=== PATIENT | female | born 1985 | race Caucasian/White ===

== ENCOUNTER 2017-01-25 13:19 | Emergency (ER) | payer OTHER ==
[~2017-01-25] VITALS: Ht 170.1 cm; Wt 68.0 kg
[~2017-01-25 13:19] MED LIST: 'XANAX0.25 MG PO; AUGMENTIN 875875 MG PO; BENTYL10 MG PO; BIRTH CONTROL; CEPHALEXIN500 M1 PO; CITALOPRAM10 MG PO; FIORICET 325 MG1 TAB PO; IMITREX100 MG PO; KEFLEX500 M1 PO; MOTRIN800 MG PO; PEPCID20 MG PO; PHENERGAN W/ DE30 ML PO; PREDNICOT10 MG PO; TOPAMAX100 M1 PO; TRIMOX500 MG PO; ULTRAM50 MG PO
[2017-01-25 13:56] LABS: BASO % 0.3 % (0.0-1.0); EOS # 0.2 10*3/uL (0.0-0.4); EOS % 2.4 % (1.0-4.0); HEMATOCRIT 43.8 % (37.0-47.0); HEMOGLOBIN 14.7 g/dl (12.0-16.0); LYMPH # 0.9 10*3/uL (1.3-4.4); LYMPH % 12.3 % (27.0-41.0); MEAN CELL VOLUME 89.6 fl (81.0-99.0); MEAN CORPUSCULAR HGB 30.1 pg (27.0-31.0); MEAN CORPUSCULAR HGB CONC 33.6 g/dl (33.0-37.0); MEAN PLATELET VOLUME 9.6 fl (9.6-12.3); MONO # 0.4 10*3/uL (0.1-1.0); MONO % 6.2 % (3.0-9.0); NEUT # 5.5 10*3/uL (2.3-7.9); NEUT % 78.5 % (47.0-73.0); PLATELET COUNT AUTOMATED 226 10*3/uL (130-400); RED BLOOD COUNT 4.89 10*6/uL (4.10-5.10); RED CELL DISTRI WIDTH 12.8 % (0-14.5)
[2017-01-25 14:09] LABS: ALBUMIN 3.7 gm/dl (3.1-4.5); ALKALINE PHOSPHATASE 56 U/L (45-117); BUN 8 mg/dl (7-24); CHLORIDE 105 mmol/L (98-107); CREATININE 0.89 mg/dL (0.55-1.02); LIPASE 85 U/L (73-393); POTASSIUM 3.7 mmol/L (3.5-5.1); SGOT/AST 11 IU/L (3-35); SGPT/ALT 24 U/L (12-78); SODIUM 140 mmol/L (136-145); TOTAL PROTEIN 7.6 gm/dL (6.4-8.2)
[2017-01-25 15:53] LABS: BILIRUBIN 1+ (NEGATIVE); BLOOD 1+ (NEGATIVE); CLARITY SL CLOUDY (CLEAR); COLOR YELLOW (YELLOW); GLUCOSE NEGATIVE (NEGATIVE); KETONE 1+ (NEGATIVE); LEUKO ESTERASE NEGATIVE (NEGATIVE); NITRITE NEGATIVE (NEGATIVE); PH 5.5 (5.0-9.0); SPECIFIC GRAVITY >= 1.030 (1.005-1.030); UROBILINOGEN 0.2 E.U./dl (0.2-1.0)
[2017-01-25 16:03] LABS: BACTERIA 1+; WBC 0-2 wbc/hpf (0-5)
[2017-01-25 16:04] LABS: MUCOUS TRACE
[2017-01-25] MEDS ORDERED: ZOFRAN4 MG PO (16:16)
== END 2017-01-25 15:24 | disposition home or self-care (01) ==
LOC: ED 13:19
PROVIDERS: Nurse Practitioner Family
DX: B34.9 Viral infection, unspecified (principal); M54.5 Low back pain; R11.2 Nausea with vomiting, unspecified; F10.10 Alcohol abuse, uncomplicated

== ENCOUNTER 2019-02-26 16:59 | Emergency (ER) | payer OTHER ==
[~2019-02-26] VITALS: Ht 170.1 cm; Wt 72.6 kg
[~2019-02-26 16:59] MED LIST changes: +ZOFRAN4 MG PO
== END 2019-02-26 19:30 | disposition home or self-care (01) ==
LOC: ED 16:59
DX: S92.411A Displaced fracture of proximal phalanx of right great toe, initial encounter for closed fracture (principal); G43.909 Migraine, unspecified, not intractable, without status migrainosus; M79.671 Pain in right foot; W22.8XXA Striking against or struck by other objects, initial encounter; Y93.89 Activity, other specified; Y92.098 Other place in other non-institutional residence as the place of occurrence of the external cause; Y99.8 Other external cause status

== ENCOUNTER 2019-03-05 16:27 | Emergency (ER) | payer OTHER ==
[~2019-03-05] VITALS: Ht 170.1 cm; Wt 68.0 kg
== END 2019-03-05 18:45 | disposition home or self-care (01) ==
LOC: ED 16:27
DX: G43.909 Migraine, unspecified, not intractable, without status migrainosus (principal)

== ENCOUNTER 2019-05-06 12:04 | Emergency (ER) | payer OTHER ==
[~2019-05-06] VITALS: Ht 170.1 cm; Wt 72.6 kg
[2019-05-06 12:43] LABS: BASO % 0.8 % (0.0-1.0); EOS # 0.3 10*3/uL (0.0-0.4); EOS % 5.6 % (1.0-4.0); HEMATOCRIT 37.9 % (37.0-47.0); HEMOGLOBIN 11.9 g/dl (12.0-16.0); LYMPH # 1.4 10*3/uL (1.3-4.4); LYMPH % 26.7 % (27.0-41.0); MEAN CORPUSCULAR HGB 24.8 pg (27.0-31.0); MEAN CORPUSCULAR HGB CONC 31.4 g/dl (33.0-37.0); MEAN PLATELET VOLUME 9.6 fl (9.6-12.3); MONO # 0.4 10*3/uL (0.1-1.0); MONO % 7.2 % (3.0-9.0); NEUT # 3.2 10*3/uL (2.3-7.9); NEUT % 59.5 % (47.0-73.0); PLATELET COUNT AUTOMATED 338 10*3/uL (130-400); RED CELL DISTRI WIDTH 17.9 % (0-14.5); WHITE BLOOD COUNT 5.3 10*3/uL (4.8-10.8)
[2019-05-06 13:04] LABS: ALBUMIN 3.4 gm/dl (3.1-4.5); ALKALINE PHOSPHATASE 58 U/L (45-117); BUN 8 mg/dl (7-24); CHLORIDE 109 mmol/L (98-107); CREATININE 0.88 mg/dL (0.55-1.02); LIPASE 61 U/L (73-393); POTASSIUM 3.8 mmol/L (3.5-5.1); SGOT/AST 11 IU/L (3-35); SGPT/ALT 24 U/L (12-78); SODIUM 139 mmol/L (136-145); TOTAL PROTEIN 7.2 gm/dL (6.4-8.2)
[2019-05-06 13:05] LABS: ACT PARTIAL THROMBO TIME 23.3 SECONDS (20.0-32.1)
[2019-05-06 13:06] LABS: BETA-HCG, QUANT < 1.0 mIU/mL (1-3); TROPONIN I < 0.015 ng/ml (<0.045)
== END 2019-05-06 18:52 | disposition home or self-care (01) ==
LOC: ED 12:04
PROVIDERS: Emergency Medicine
DX: R09.1 Pleurisy (principal); R11.0 Nausea; G43.909 Migraine, unspecified, not intractable, without status migrainosus; F41.9 Anxiety disorder, unspecified; Z79.899 Other long term (current) drug therapy

== ENCOUNTER → 2020-09-18 | Outpatient (CLI) | payer OTHER ==
[~2020-09-18] MED LIST changes: +CIPRO500 MG PO; +KLOR-CON M2020 ME1 PO
== END | disposition home or self-care (01) ==
LOC: CT 09-10 09:00
PROVIDERS: ATTEND Neurological Surgery
DX: S22.081A Stable burst fracture of T11-T12 vertebra, initial encounter for closed fracture (principal); S22.001D Stable burst fracture of unspecified thoracic vertebra, subsequent encounter for fracture with routine healing; M53.3 Sacrococcygeal disorders, not elsewhere classified; X58.XXXA Exposure to other specified factors, initial encounter; Y93.89 Activity, other specified; Y92.89 Other specified places as the place of occurrence of the external cause; Y99.8 Other external cause status; X58.XXXD Exposure to other specified factors, subsequent encounter; Z87.828 Personal history of other (healed) physical injury and trauma

== ENCOUNTER 2020-09-23 20:31 | Emergency (ER) | payer OTHER ==
[~2020-09-23] VITALS: Ht 170.1 cm; Wt 65.8 kg
[~2020-09-23 20:31] MED LIST changes: -CIPRO500 MG PO; -KLOR-CON M2020 ME1 PO
[2020-09-23 21:08] LABS: BASO % 0.2 % (0.0-1.0); EOS # 0.1 10*3/uL (0.0-0.4); EOS % 0.7 % (1.0-4.0); HEMATOCRIT 41.8 % (37.0-47.0); LYMPH # 1.3 10*3/uL (1.3-4.4); LYMPH % 13.2 % (27.0-41.0); MEAN CELL VOLUME 84.8 fl (81.0-99.0); MEAN CORPUSCULAR HGB CONC 31.8 g/dl (33.0-37.0); MEAN PLATELET VOLUME 9.9 fl (9.6-12.3); MONO # 0.7 10*3/uL (0.1-1.0); MONO % 6.8 % (3.0-9.0); NEUT # 7.6 10*3/uL (2.3-7.9); NEUT % 78.9 % (47.0-73.0); PLATELET COUNT AUTOMATED 270 10*3/uL (130-400); RED BLOOD COUNT 4.93 10*6/uL (4.10-5.10); RED CELL DISTRI WIDTH 15.3 % (0-14.5); WHITE BLOOD COUNT 9.7 10*3/uL (4.8-10.8)
[2020-09-23 21:24] LABS: ALBUMIN 3.6 gm/dl (3.1-4.5); ALKALINE PHOSPHATASE 63 U/L (45-117); BUN 6 mg/dl (7-24); CHLORIDE 103 mmol/L (98-107); CREATININE 0.75 mg/dL (0.55-1.02); POTASSIUM 3.1 mmol/L (3.5-5.1); SGOT/AST 9 IU/L (3-35); SGPT/ALT 16 U/L (12-78); SODIUM 136 mmol/L (136-145); TOTAL PROTEIN 7.8 gm/dL (6.4-8.2)
[2020-09-23 21:33] LABS: BILIRUBIN Negative (Negative); BLOOD 1+ (Negative); CLARITY Cloudy (Clear); COLOR Yellow (Yellow); GLUCOSE Negative (Negative); KETONE 2+ (Negative); LEUKO ESTERASE 3+ (Negative); NITRITE Positive (Negative); PH 5.5 (4.5-8.0); SPECIFIC GRAVITY 1.015 (1.001-1.030)
[2020-09-23 21:45] LABS: BACTERIA 4+; WBC TNTC wbc/hpf (0-5)
[2020-09-24] MEDS ORDERED: KLOR-CON M2020 ME1 PO (01:07)
[2020-09-24] MEDS ORDERED: CIPRO500 MG PO (01:07)
== END 2020-09-24 02:49 | disposition home or self-care (01) ==
LOC: ED 20:31
PROVIDERS: Physician Assistant
DX: N39.0 Urinary tract infection, site not specified (principal); G43.909 Migraine, unspecified, not intractable, without status migrainosus; Z79.899 Other long term (current) drug therapy

== ENCOUNTER → 2020-10-01 | Outpatient (CLI) | payer OTHER ==
[~2020-10-01] MED LIST changes: +CIPRO500 MG PO; +KLOR-CON M2020 ME1 PO
== END ==
LOC: WOUNDCARE 00:50
PROVIDERS: ATTEND Nurse Practitioner
DX: L97.412 Non-pressure chronic ulcer of right heel and midfoot with fat layer exposed (principal); L97.512 Non-pressure chronic ulcer of other part of right foot with fat layer exposed; G95.9 Disease of spinal cord, unspecified

== ENCOUNTER → 2020-10-09 | Outpatient (CLI) | payer OTHER | LOC: WOUNDCARE 00:48 | PROVIDERS: ATTEND Nurse Practitioner | DX: L97.412 Non-pressure chronic ulcer of right heel and midfoot with fat layer exposed (principal); L97.512 Non-pressure chronic ulcer of other part of right foot with fat layer exposed; G95.9 Disease of spinal cord, unspecified ==

== ENCOUNTER → 2020-10-20 | Outpatient (CLI) | payer OTHER | LOC: WOUNDCARE 01:50 | PROVIDERS: ATTEND Nurse Practitioner | DX: L97.412 Non-pressure chronic ulcer of right heel and midfoot with fat layer exposed (principal); S91.301D Unspecified open wound, right foot, subsequent encounter; G95.9 Disease of spinal cord, unspecified; X58.XXXD Exposure to other specified factors, subsequent encounter ==

== ENCOUNTER 2021-09-13 01:55 | Emergency (ER) | payer OTHER ==
[2021-09-13] MEDS ORDERED: IBU800 M2 PO (02:26)
[2021-09-13] MEDS ORDERED: VIBRA-TAB100 MG PO (02:26)
== END 2021-09-13 03:13 | disposition home or self-care (01) ==
LOC: ED 01:55
DX: S41.152A Open bite of left upper arm, initial encounter (principal); W54.0XXA Bitten by dog, initial encounter; Y93.89 Activity, other specified; Y92.89 Other specified places as the place of occurrence of the external cause; Y99.8 Other external cause status

== ENCOUNTER → 2021-12-23 | Outpatient (CLI) | payer OTHER ==
[~2021-12-23] MED LIST changes: +IBU800 M2 PO; +VIBRA-TAB100 MG PO
== END | disposition home or self-care (01) ==
LOC: MRI 12-06 13:00
PROVIDERS: ATTEND Neurological Surgery
DX: M43.8X4 Other specified deforming dorsopathies, thoracic region (principal); S24.109S Unspecified injury at unspecified level of thoracic spinal cord, sequela; N31.9 Neuromuscular dysfunction of bladder, unspecified; M43.25 Fusion of spine, thoracolumbar region; M53.3 Sacrococcygeal disorders, not elsewhere classified; Z98.1 Arthrodesis status; X58.XXXS Exposure to other specified factors, sequela